=== PATIENT | male | born 1970 | race Caucasian/White ===

== ENCOUNTER 2022-06-22 10:47 | Outpatient (CLI) | payer OTHER, SELFPAY ==
[2022-06-22 13:59] LABS: Basophils Absolute Auto 0.02 K/uL (0.00-0.30); Basophils Percent Auto 0.3 % (0.0-3.0); Cholesterol* 222 mg/dL (90-199); Eosinophils Absolute Auto 0.22 K/uL (0.00-0.50); Eosinophils Percent Auto 3.6 % (0.0-7.0); Glucose* 89 mg/dL (60-115); Hematocrit 44.6 % (37.0-53.0); Hemoglobin* 14.8 gm/dL (13.5-17.5); Immature Granulocytes Abs Auto 0.01 K/uL (0.00-0.30); Immature Granulocytes Pct Auto 0.2 %; Lymphocytes Absolute Auto 1.95 K/uL (0.90-2.90); Lymphocytes Percent Auto 31.8 % (20-44); Mean Corpuscular HGB Conc 33 gm/dL (32-36); Mean Corpuscular Hemoglobin 28 pg (26-34); Mean Corpuscular Volume 83 fL (80-100); Monocytes Percent Auto 9.9 % (0.0-11.0); Neutrophils Absolute Auto 3.33 K/uL (1.7-7.0); Neutrophils Percent Auto 54.2 % (42.0-72.0); Platelet Count* 273 K/uL (140-440); RDW Coefficient of Variation % 12.4 % (11.5-15.5); Red Blood Count 5.35 m/uL (4.30-5.90); Triglycerides* 186 mg/dL (40-149); White Blood Count* 6.14 K/uL (4.50-11.00)
[2022-06-22 14:00] LABS: HDL Cholesterol* 43 mg/dL (>=40); LDL Cholesterol Calculated 142 mg/dL (<100)
[2022-06-22 14:11] LABS: Slide Review Reflex No
[2022-06-22 14:29] LABS: PSA Screen* 0.76 ng/mL (0.10-4.00)
== END 2022-06-22 10:48 | disposition home or self-care (01) ==
PROVIDERS: PCP Nurse Practitioner Family; Visit Provider Nurse Practitioner Family
DX: Z00.00 Encounter for general adult medical examination without abnormal findings (principal); R53.83 Other fatigue; Z12.5 Encounter for screening for malignant neoplasm of prostate; Z13.1 Encounter for screening for diabetes mellitus; Z13.6 Encounter for screening for cardiovascular disorders
CPT/HCPCS: 80061; 82947; 84153; 85025

== ENCOUNTER 2022-06-29 11:02 | Outpatient (CLI) | payer OTHER, SELFPAY ==
--- NOTE | 2022-06-29 11:00 | CRLHL7_ITS ---
For Patients: As a result of the Century Cures Act, medical imaging exams and procedure reports are released immediately into your electronic medical record. You may view this report before your referring provider. If you have questions, please contact your health care provider. Examination: US abdominal aorta Indication: fam hx of AAA rupture. Abdominal aortic aneurysm screening. Technique: Shah scale and color Doppler images of the aorta and common iliac arteries are obtained. Comparison: None Findings: Proximal aorta: 2.7 x 2.7 cm Mid aorta: 1.8 x 1.5 cm Distal aorta: 1.7 x 1.5 cm Right common iliac artery: 1.0 x 1.0 cm Left common iliac artery: 1.0 x 0.9 cm Recommended imaging interval for ectatic aorta: 2.5-2.9 cm: 5 years Impression: No abdominal aortic aneurysm. Dictated by Roshan Ybarra MD @ 06/29/2022 12:13:54 PM (Electronically Signed)
== END 2022-06-29 11:03 | disposition home or self-care (01) ==
LOC: US 11:03
PROVIDERS: PCP Nurse Practitioner Family; Visit Provider Nurse Practitioner Family
DX: Z13.6 Encounter for screening for cardiovascular disorders (principal)
CPT/HCPCS: 76775

== ENCOUNTER 2022-07-20 06:16 | Outpatient (CLI) | payer OTHER, SELFPAY | END 2022-07-20 06:17 | disposition home or self-care (01) | LOC: OP CLINIC 06:16 | PROVIDERS: PCP Nurse Practitioner Family; Visit Provider Internal Medicine | DX: Z12.11 Encounter for screening for malignant neoplasm of colon (principal); K63.5 Polyp of colon | CPT/HCPCS: 45380; 88305; J2250; J3010 ==

== ENCOUNTER 2023-08-16 08:30 | Outpatient (CLI) | payer OTHER, SELFPAY | END 2023-08-16 08:31 | disposition home or self-care (01) | PROVIDERS: PCP Nurse Practitioner Family; Visit Provider Nurse Practitioner Family | DX: Z12.5 Encounter for screening for malignant neoplasm of prostate (principal); Z13.228 Encounter for screening for other metabolic disorders; Z13.220 Encounter for screening for lipoid disorders; Z13.0 Encounter for screening for diseases of the blood and blood-forming organs and certain disorders involving the immune mechanism | CPT/HCPCS: 80053; 80061; 85025; G0103 ==

== ENCOUNTER 2024-08-21 10:50 | Outpatient (CLI) | payer OTHER, SELFPAY ==
[2024-08-21 11:23] LABS: Appearance Urine Clear (Clear); Bilirubin Urine 1+ (Negative); Blood Urine Negative (Negative); Color Urine Yellow (Yellow); Glucose Urine Negative (Negative); Ketones Urine Negative (Negative); Leukocyte Esterase Urine Negative (Negative); Nitrite Urine Negative (Negative); Protein Urine 2+ (Negative); Specific Gravity Urine >= 1.030 (1.000-1.030); Urobilinogen Urine 0.2 (0.2-1.0); pH Urine 5.5 (5.0-8.5)
[2024-08-21 13:37] LABS: Basophils Percent Auto 0.6 % (0.0-3.0); Hemoglobin* 13.6 gm/dL (13.5-17.5); Immature Granulocytes Pct Auto 0.9 %; Lymphocytes Percent Auto 17.9 % (20-44); Mean Corpuscular HGB Conc 32 gm/dL (32-36); Mean Corpuscular Hemoglobin 28 pg (26-34); Mean Corpuscular Volume 86 fL (80-100); Monocytes Percent Auto 19.7 % (0.0-11.0); Neutrophils Percent Auto 60.9 % (42.0-72.0); Platelet Count* 198 K/uL (140-440); RDW Coefficient of Variation % 12.7 % (11.5-15.5); Red Blood Count 4.91 m/uL (4.30-5.90)
[2024-08-21 13:40] LABS: Slide Review Reflex No
[2024-08-21 13:48] LABS: RBC Urine 0-2 (0-2); WBC Urine 0-2 (0-5)
[2024-08-21 13:49] LABS: Amorphous Sediment Urine Many
[2024-08-21 14:11] LABS: Albumin* 4.1 g/dL (3.3-5.0); Chloride* 102 mmol/L (96-114); Sodium* 135 mmol/L (135-149)
[2024-08-21 14:14] LABS: Alkaline Phosphatase* 60 U/L (40-150); Anion Gap 8 mEq/L (7-15); Aspartate Amino Transferase* 43 U/L (12-35); Bilirubin Total* 0.5 mg/dL (0.1-1.5); Blood Urea Nitrogen* 16 mg/dL (7-30); Carbon Dioxide* 25 mmol/L (20-32); Cholesterol* 189 mg/dL (90-199); Estimated Glomerular Filt Rate 90 ml/min; Glucose* 99 mg/dL (60-115); Total Protein* 6.9 g/dL (6.0-8.3); Triglycerides* 94 mg/dL (40-149)
[2024-08-21 14:15] LABS: Alanine Aminotransferase* 51 U/L (4-50); Calcium* 8.9 mg/dL (8.4-10.6); HDL Cholesterol* 39 mg/dL (>=40); LDL Cholesterol Calculated 131 mg/dL (<100)
[2024-08-21 14:43] LABS: PSA Screen* 0.57 ng/mL (0.10-4.00)
== END 2024-08-21 10:51 | disposition home or self-care (01) ==
PROVIDERS: PCP Nurse Practitioner Family; Visit Provider Nurse Practitioner Family
DX: E78.5 Hyperlipidemia, unspecified (principal); R35.0 Frequency of micturition; Z12.5 Encounter for screening for malignant neoplasm of prostate
CPT/HCPCS: 80053; 80061; 81001; 81003; 85025; 87086; G0103

== ENCOUNTER 2025-02-19 09:18 | Outpatient (CLI) | payer OTHER, SELFPAY | END 2025-02-19 09:19 | disposition home or self-care (01) | PROVIDERS: PCP Nurse Practitioner Family; Visit Provider Nurse Practitioner Family | DX: H11.32 Conjunctival hemorrhage, left eye (principal) | CPT/HCPCS: 80076; 84597; 85025; 85730 ==